=== PATIENT | female | born 1995 | race Caucasian/White ===

== ENCOUNTER 2017-07-25 21:22 | Emergency (ER) | payer BC ==
[~2017-07-25] VITALS: Ht 172.7 cm; Wt 89.0 kg
[2017-07-25 21:25] VITALS: BP 146/89; PULSE 91; TEMP 37.1; O2SAT 97; Ht 172.7 cm; Wt 89.0 kg
[2017-07-25] MEDS ORDERED: MULT-506 PO (22:04)
[2017-07-25] MEDS ORDERED: ASCO500C5 PO (22:04)
[2017-07-25] MEDS ORDERED: SULF800T23 PO (22:07)
[2017-07-25] MEDS ORDERED: PHEN-876 PO (22:07)
[2017-07-25] MEDS ORDERED: PHENAZOPYRIDINE HOME PACK 200 MG VIAL PO ONE (22:15)
[2017-07-25] MEDS ORDERED: SULFAMETHOXAZOLE/TRIMETHOPRIM DS 800/160MG TAB PO ONE (22:15)
--- NOTE | 2017-07-25 22:28 | EMERGENCY ROOM VISIT NOTE ---
History First contact with patient: 21:35 Chief Complaint: URINARY SYMPTOMS Stated Complaint: BURNING WHILE PEEING,FEVER History of Present Illness The patient is a 21 year old female who presents to the Emergency Room with complaints of urinary discomfort, increased frequency, urgency and burning. The patient reports that she woke up this morning with these symptoms. She denied any symptoms last night. She also reports mild lower back pain. She denies any nausea, vomiting or significant abdominal pain. The patient reports that she did feel feverish this afternoon, but did not check her temperature. She rates her discomfort a 7 out of 10. She denies history of recurrent UTI. The patient just finished menstruation, and denies any recent vaginal discharge or significant cramping. The patient denies . Review of Systems 10 system review was performed and was negative except for pertinent positives and negatives as indicated in history of present illness Past Medical/Surgical History Medical Problems: (1) No significant past medical history Surgical Problems: (1) No history of previous surgery Family History Unremarkable Social History Smoking Status: Never Smoker Alcohol Use: occasionally Marital Status: single Occupation Status: [employer] Current/Historical Medications Scheduled Ascorbic Acid (Vitamin C), 500 MG PO DAILY Multivitamin (Multivitamin), 1 TAB PO DAILY Sulfa/Trimethoprim (Bactrim Ds 800MG/160MG), 1 TAB PO BID Scheduled PRN Phenazopyridine HCl (Pyridium), 200 MG PO TID PRN for dysuria Physical Exam Vital Signs Date Time Temp Pulse Resp B/P (MAP) Pulse Ox O2 Delivery O2 Flow Rate FiO2 07/25/17 21:25 37.1 91 16 146/89 97 Room Air Physical Exam CONSTITUTIONAL: Healthy and well nourished. Alert and oriented X 3 with positive affect. Patient does not appear in any acute distress. HEENT: Normocephalic, atraumatic. Pupils equal, round and reactive. No scleral icterus or conjunctival injection. NECK: Full active range of motion without discomfort. RESPIRATORY: Clear to auscultation bilaterally with no wheezing, crackles, rhonchi or stridor. CARDIOVASCULAR: Regular rate and rhythm with no murmurs, rubs or gallops. GASTROINTESTINAL: Bowel sounds present in all quadrants. Soft and nontender to palpation. Negative McBurney's point tenderness. Negative CVA tenderness. MUSCULOSKELETAL: Full range of motion of all joints without discomfort. INTEGUMENTARY: No rash or other significant dermatologic conditions noted. NEUROLOGIC: No focal neurologic deficits noted. Medical Decision & Procedures Medications Administered Medications (Trade) Dose Ordered Sig/Rosendo Route Start Time Stop Time Status Last Admin Dose Admin Trimethoprim/ Sulfamethoxazole (Septra Ds 800/ 160MG Tab) 1 tab NOW ONCE PO 07/25/17 22:15 07/25/17 22:16 DC 07/25/17 22:15 1 TAB Phenazopyridine HCl (Phenazopyridine HCl 200MG Home Pack) 1 homepack UD ONCE PO 07/25/17 22:15 07/25/17 22:16 DC 07/25/17 22:15 1 HOMEPACK ED Course Patient history and physical exam were performed. Nurse's notes were reviewed. Vital signs were reviewed, showing no fever or tachycardia. The patient is also normotensive. Urine dip shows trace hematuria, which could be secondary to menstrual contamination. Leukocyte esterase are present. Urine was negative. Urine cultures were ordered and are pending. The patient will be treated for UTI given classic symptom presentation. The patient was administered Bactrim DS in the emergency department, and provided a home pack and written prescription for Pyridium. She received an electronic prescription for Bactrim DS. The patient was instructed to return to the emergency department for any progressively worsening pain, vomiting, developing fever or back pain. We will contact her with any resistant cultures. The patient was happy with plan of care, voiced understanding of all discharge instructions, and rated her discomfort a 6 out of 10 at the time of discharge. Medical Decision Medication Reconcilliation Current Medication List: was personally reviewed by wa Blood Pressure Screening Patient's blood pressure: Normal blood pressure Impression Primary Impression: Symptoms of urinary tract infection Departure Information Dispostion Home / Self-Care Prescriptions Phenazopyridine HCl (Pyridium) 200 Mg Tab 200 MG PO TID Y for dysuria, #3 TAB Prov: Simba Duval PA 07/25/17 Sulfa/Trimethoprim (Bactrim Ds 800MG/160MG) Tab 1 TAB PO BID for 5 Days, #10 TAB Prov: Simba Duval PA 07/25/17 Referrals [facility] (PCP) Forms HOME CARE DOCUMENTATION FORM, IMPORTANT VISIT INFORMATION Patient Instructions [facility], ED UTI Cystitis Female Additional Instructions Complete all Bactrim DS antibiotics as prescribed. Pyridium as prescribed and as needed for urinary discomfort. Return to the emergency department for progressively worsening pain, vomiting or developing fever.
== END 2017-07-25 22:18 | disposition home or self-care (01) ==
LOC: C.EDB 21:23 → C.EDA 22:18
DX: R30.9 Painful micturition, unspecified (principal); R35.0 Frequency of micturition; R39.15 Urgency of urination; M54.5 Low back pain